=== PATIENT | female | born 1995 | race Two or more races ===

== ENCOUNTER 2020-03-25 01:23 | Emergency (ER) | payer OTHER ==
[~2020-03-25] VITALS: Ht 162.6 cm; Wt 61.4 kg
[2020-03-25] MEDS ORDERED: PERTUSS(ACELL),DIPH,TET VAC/PF 0.5 ML VIAL IM ONE (02:00)
[2020-03-25] MEDS ORDERED: SODIUM CHLORIDE 0.9% 250 ML IRRIG SOLUTION BOTTLE IRRIG ONE (02:00)
[2020-03-25] MEDS ORDERED: LIDOCAINE 1% 10 ML VIAL ID ONE (02:00)
[2020-03-25] MEDS ORDERED: IBUPROFEN 600 MG TABLET PO ONE (02:00)
[2020-03-25 04:10] VITALS: BP 119/75
== END 2020-03-25 04:19 | disposition home or self-care (01) ==
LOC: EMS 01:26
DX: S61.012A Laceration without foreign body of left thumb without damage to nail, initial encounter (principal); W45.8XXA Other foreign body or object entering through skin, initial encounter; Y93.89 Activity, other specified; Y92.89 Other specified places as the place of occurrence of the external cause; Y99.8 Other external cause status
CPT/HCPCS: 12002; 90471; 90715; 99283; J3490